=== PATIENT | female | born 1965 ===

== ENCOUNTER 2021-04-16 07:21 | Emergency (ER) | payer SELFPAY ==
--- NOTE | 2021-04-16 08:36 | XRay Report ---
CHEST 2 VIEWS INDICATION / CLINICAL INFORMATION: Chest pain. COMPARISON: None available. FINDINGS: SUPPORT DEVICES: None. HEART / MEDIASTINUM: The heart size is borderline. Pulmonary vasculature is normal. The aorta is norm al in caliber. LUNGS / PLEURA: There is mild diffuse reticular interstitial lung disease with slight peribronchial t hickening. No focal consolidation or effusion. No pneumothorax. ADDITIONAL FINDINGS: No significant additional findings. IMPRESSION: Mild diffuse nonspecific interstitial lung disease is probably chronic. Signer Name: Ernesto Gilliam MD Signed: 04/16/2021 8:32 AM Workstation Name: [id number]
[2021-04-16] MEDS ORDERED: ONDANSETRON 4 MG/2 ML INJ IV ONE (08:53)
[2021-04-16] MEDS ORDERED: MORPHINE 4 MG/1 ML INJ IV ONE ×3 (08:53→13:59)
[2021-04-16] MEDS ORDERED: ALUM-MAG HYDROXIDE-SIMETHICONE 200-200-20MG/5ML ORAL LIQD 30 ML PO ONE (08:54)
[2021-04-16] MEDS ORDERED: LIDOCAINE VISCOUS 2% 15 ML ORAL LIQD PO ONE (08:54)
--- NOTE | 2021-04-16 08:57 | Emergency Department Report ---
ED Chest Pain HPI - General Chief Complaint: Chest Pain Stated Complaint: ABD PAIN,CHEST DISCOMFORT Time Seen by Provider: 04/16/21 07:48 Source: patient Mode of arrival: Stretcher Limitations: No Limitations - History of Present Illness Initial Comments: This is a 55-year-old -Israeli female presents to the emergency department with a complaint of chest and abdominal pain that started around 12:30 AM last night. She has midsternal chest pain with some radiation towards her mid back and towards her left side. She has upper abdominal pain. Both of these pains are 10 out of 10 in intensity, intermittent, and there are no aggravating or alleviating factors. She admits that she has had these pains in the past but "usually it goes away, but this time it did not." She has a past medical history of asthma and GERD. No tobacco, illicit drug use, alcohol abuse. No family history of early heart attack. She has not taken anything for symptoms prior to presentation. Patient has never had a cardiac stress test. No recent travel or sick contacts at home. - Related Data Previous Rx's Medication Instructions Recorded Last Taken Type HYDROcodone/APAP 5-325 [[place] 1 each PO Q6HR PRN #12 tablet 04/16/21 Unknown Rx 5/325] Ondansetron [Zofran Odt] 4 mg PO Q8HR PRN #12 tab.rapdis 04/16/21 Unknown Rx Allergies Allergy/AdvReac Type Severity Reaction Status Date / Time No Known Allergies Allergy Verified 04/16/21 07:35 Heart Score - HEART Score History: Slightly suspicious EKG: Normal Age: 45-65 Risk factors: 1-2 risk factors Troponin: < normal limit HEART Score: 2 - EKG Read Time Time EKG Completed: 09:08 EKG Read Time: 09:10 - Critical Actions Critical Actions: 0-3 pts:0.9-1.7%risk of adverse cardiac event.Candidate for discharge ED Review of Systems ROS: Stated complaint: ABD PAIN,CHEST DISCOMFORT Other details as noted in HPI Comment: All other systems reviewed and negative Constitutional: denies: chills, fever Eyes: denies: eye pain, vision change ENT: denies: ear pain, throat pain Respiratory: denies: cough, shortness of breath Cardiovascular: chest pain. denies: palpitations Gastrointestinal: abdominal pain, nausea, vomiting Genitourinary: denies: dysuria, discharge Musculoskeletal: back pain. denies: arthralgia Skin: denies: rash, lesions Neurological: denies: headache, weakness ED Past Medical Hx - Medications Home Medications: Home Medications Medication Instructions Recorded Confirmed Last Taken Type HYDROcodone/APAP 5-325 [[place] 1 each PO Q6HR PRN #12 tablet 04/16/21 Unknown Rx 5/325] Ondansetron [Zofran Odt] 4 mg PO Q8HR PRN #12 tab.rapdis 04/16/21 Unknown Rx ED Physical Exam - General Limitations: No Limitations ED Course Vital Signs 04/16/21 04/16/21 04/16/21 07:23 09:46 09:54 Temperature 97.5 F L Pulse Rate 79 79 Respiratory 16 20 18 Rate Blood Pressure 168/89 Blood Pressure 152/107 [Right] O2 Sat by Pulse 98 96 Oximetry 04/16/21 04/16/21 04/16/21 13:42 14:50 15:17 Temperature Pulse Rate 65 Respiratory 17 17 16 Rate Blood Pressure Blood Pressure 153/77 [Right] O2 Sat by Pulse 100 Oximetry FLORENTIN score - Florentin Score Age > 65: (0) No Aspirin use within the Past 7 Days: (0) No 3 or more CAD Risk Factors: (0) No 2 or more Angina events in past 24 hrs: (1) Yes Known CAD with more than 50% Stenosis: (0) No Elevated Cardiac Markers: (0) No ST Deviation Greater than 0.5mm: (0) No FLORENTIN Score: 1 ED Medical Decision Making - Lab Data Result diagrams: 04/16/21 08:23 04/16/21 08:23 Lab Results 04/16/21 04/16/21 04/16/21 Range/Units 08:23 08:23 08:23 WBC 7.6 (4.5-11.0) K/mm3 RBC 4.44 (3.65-5.03) M/mm3 Hgb 13.3 (10.1-14.3) gm/dl Hct 40.0 (30.3-42.9) % MCV 90 (79-97) fl MCH 30 (28-32) pg MCHC 33 (30-34) % RDW 14.4 (13.2-15.2) % Plt Count 292 (140-440) K/mm3 Lymph % (Auto) 11.4 L (13.4-35.0) % [place] % (Auto) 5.4 (0.0-7.3) % Eos % (Auto) 0.4 (0.0-4.3) % Baso % (Auto) 0.5 (0.0-1.8) % Lymph # (Auto) 0.9 L (1.2-5.4) K/mm3 [place] # (Auto) 0.4 (0.0-0.8) K/mm3 Eos # (Auto) 0.0 (0.0-0.4) K/mm3 Baso # (Auto) 0.0 (0.0-0.1) K/mm3 Seg Neutrophils % 82.3 H (40.0-70.0) % Seg Neutrophils # 6.2 (1.8-7.7) K/mm3 PT 13.9 (12.2-14.9) Sec. INR 0.96 (0.87-1.13) Sodium 139 (137-145) mmol/L Potassium 4.8 (3.6-5.0) mmol/L Chloride 103.6 (98-107) mmol/L Carbon Dioxide 24 (22-30) mmol/L Anion Gap 16 mmol/L BUN 10 (7-17) mg/dL Creatinine 0.7 (0.6-1.2) mg/dL Estimated GFR > 60 ml/min BUN/Creatinine Ratio 14 % Glucose 107 H (65-100) mg/dL Calcium 9.4 (8.4-10.2) mg/dL Total Bilirubin 0.60 (0.1-1.2) mg/dL AST 31 (5-40) units/L ALT 44 (7-56) units/L Alkaline Phosphatase 131 H (35-129) units/L Troponin T < 0.010 (0.00-0.029) ng/mL Total Protein 8.5 H (6.3-8.2) g/dL Albumin 4.0 (3.9-5) g/dL Albumin/Globulin Ratio 0.9 % Lipase 13 (13-60) units/L Urine Color (Yellow) Urine Turbidity (Clear) Urine pH (5.0-7.0) Ur Specific [place] (1.003-1.030) Urine Protein (Negative) mg/dL Urine Glucose (UA) (Negative) mg/dL Urine Ketones (Negative) mg/dL Urine Blood (Negative) Urine Nitrite (Negative) Urine Bilirubin (Negative) Urine Urobilinogen (<2.0) mg/dL Ur Leukocyte Esterase (Negative) Urine WBC (Auto) (0.0-6.0) /HPF Urine RBC (Auto) (0.0-6.0) /HPF U Epithel Cells (Auto) (0-13.0) /HPF 04/16/21 04/16/21 Range/Units 10:31 13:14 WBC (4.5-11.0) K/mm3 RBC (3.65-5.03) M/mm3 Hgb (10.1-14.3) gm/dl Hct (30.3-42.9) % MCV (79-97) fl MCH (28-32) pg MCHC (30-34) % RDW (13.2-15.2) % Plt Count (140-440) K/mm3 Lymph % (Auto) (13.4-35.0) % [place] % (Auto) (0.0-7.3) % Eos % (Auto) (0.0-4.3) % Baso % (Auto) (0.0-1.8) % Lymph # (Auto) (1.2-5.4) K/mm3 [place] # (Auto) (0.0-0.8) K/mm3 Eos # (Auto) (0.0-0.4) K/mm3 Baso # (Auto) (0.0-0.1) K/mm3 Seg Neutrophils % (40.0-70.0) % Seg Neutrophils # (1.8-7.7) K/mm3 PT (12.2-14.9) Sec. INR (0.87-1.13) Sodium (137-145) mmol/L Potassium (3.6-5.0) mmol/L Chloride (98-107) mmol/L Carbon Dioxide (22-30) mmol/L Anion Gap mmol/L BUN (7-17) mg/dL Creatinine (0.6-1.2) mg/dL Estimated GFR ml/min BUN/Creatinine Ratio % Glucose (65-100) mg/dL Calcium (8.4-10.2) mg/dL Total Bilirubin (0.1-1.2) mg/dL AST (5-40) units/L ALT (7-56) units/L Alkaline Phosphatase (35-129) units/L Troponin T < 0.010 (0.00-0.029) ng/mL Total Protein (6.3-8.2) g/dL Albumin (3.9-5) g/dL Albumin/Globulin Ratio % Lipase (13-60) units/L Urine Color Yellow (Yellow) Urine Turbidity Clear (Clear) Urine pH 6.0 (5.0-7.0) Ur Specific [place] 1.014 (1.003-1.030) Urine Protein <15 mg/dl (Negative) mg/dL Urine Glucose (UA) Neg (Negative) mg/dL Urine Ketones Neg (Negative) mg/dL Urine Blood Neg (Negative) Urine Nitrite Neg (Negative) Urine Bilirubin Neg (Negative) Urine Urobilinogen 4.0 (<2.0) mg/dL Ur Leukocyte Esterase Neg (Negative) Urine WBC (Auto) < 1.0 (0.0-6.0) /HPF Urine RBC (Auto) < 1.0 (0.0-6.0) /HPF U Epithel Cells (Auto) < 1.0 (0-13.0) /HPF - EKG Data -: EKG Interpreted by Pa EKG shows normal: sinus rhythm, axis, intervals, QRS complexes, ST-T waves Rate: normal - EKG Data When compared to previous EKG there are: previous EKG unavailable Interpretation: normal EKG - Radiology Data Radiology results: report reviewed, image reviewed interpreted by me: Chest x-ray does not show any acute process. There are no pleural effusions, obvious pneumonia and there is no pneumothorax. No widened mediastinum. Abdominal x-ray shows nonspecific and nonobstructive bowel gas. No free air. ULTRASOUND ABDOMEN, LIMITED (RIGHT UPPER QUADRANT) INDICATION: upper abdominal pain. COMPARISON: None available. FINDINGS: Pancreas: Visualized portion shows no significant abnormality. Liver: Normal. Gallbladder: Minimal sludge versus sand-like stones. Bile ducts: Normal. Common Bile Duct measures 4 mm. Free fluid: None. Additional Findings: Within the right lower quadrant anterior abdominal wall senior controller measured a 5.7 x 1.9 x 7.9 cm heterogeneously isoechoic focus. IMPRESSION: 1. Minimal gallbladder sludge versus an-like stones. No sonographic evidence of acute cholecystitis. 2. Isoechoic subcutaneous soft tissue focus, measurements as above. Sonographic appearance is suggestive of subcutaneous lipoma. - Medical Decision Making This patient presents to the emergency department with a complaint of lower middle chest, and upper abdominal pain, since last night. It was associated with some nausea with vomiting. She has reproducible right upper quadrant and epigastric tenderness to palpation. Heart and lung sounds are normal to auscul tation and the patient does not appear in any respiratory or acute distress. The abdomen is soft, nondistended and nontoxic in appearance. Patient's labs have been mostly unremarkable including CBC, metabolic panel, negative troponins x2. Chest x-ray does not show any pneumonia, pleural effusions, pneumothorax, widened mediastinum, or any other acute process. Abdominal x-ray shows nonspecific nonobstructive bowel gas, and no free air. Upper quadrant abdominal ultrasound shows signs of cholelithiasis without cholecystitis. There is gallbladder sludge versus sand-like stones. Vital signs reassuring throughout her ED course including being afebrile. The patient was given doses of antiemetics and analgesia with some improvement. The patient is low on the heart and FLORENTIN score. For all these reasons patient appears safe for discharge home at this time. She has been given outpatient referrals for cardiology and general surgery. She will return to the emergency department with any worsening of her symptoms or with any acute distress. Critical Care Time: No Critical care attestation.: If time is entered above; I have spent that time in minutes in the direct care of this critically ill patient, excluding procedure time. ED Disposition Clinical Impression: Atypical chest pain Abdominal pain Qualifiers: Abdominal location: unspecified location Qualified Code(s): R10.9 - Unspecified abdominal pain Cholelithiasis Qualifiers: Cholelithiasis location: gallbladder Cholecystitis presence: without cholecystitis Biliary obstruction: without biliary obstruction Qualified Code(s): K80.20 - Calculus of gallbladder without cholecystitis without obstruction Hypertension Qualifiers: Hypertension type: primary hypertension Qualified Code(s): I10 - Essential (primary) hypertension Disposition: 01 HOME / SELF CARE / HOMELESS Is pt being admited?: No Condition: Stable Instructions: Cholelithiasis, Abdominal Pain, Adult, Nonspecific Chest Pain, Adult, Hypertension, Adult, Hypertension (ED) Additional Instructions: Please follow-up with a primary care physician in the next few days. I have given you a referral for a local cook soup, Dr. Daniels, to follow-up regarding your chest pains. I have given you a referral for a local general surgeon, Dr. Perla, to follow- up regarding the gallstones and recurrent abdominal pains. You have been prescribed a medication that is sedating and therefore should not be taken prior to driving, working, and responsible for children and in no way should be mixed with alcohol of any quantity. Return to the emergency department with any worsening of your symptoms, new or concerning symptoms not addressed during this current emergency department visit, or with any acute distress. Prescriptions: HYDROcodone/APAP 5-325 [[place] 5/325] 1 each PO Q6HR PRN #12 tablet PRN Reason: Pain Ondansetron [Zofran Odt] 4 mg PO Q8HR PRN #12 tab.rapdis PRN Reason: Nausea Referrals: SIOBHAN DANIELS MD [Staff Physician] - 3-5 Days JENI PERLA MD [Staff Physician] - 3-5 Days Time of Disposition: 14:41
[2021-04-16 09:08] LABS: Basophils % (Auto) 0.5 % (0.0-1.8); Eosinophils % (Auto) 0.4 % (0.0-4.3); Hemoglobin 13.3 gm/dl (10.1-14.3); Lymphocytes # (Auto) 0.9 K/mm3 (1.2-5.4); Lymphocytes % (Auto) 11.4 % (13.4-35.0); Mean Corpuscular HGB Conc 33 % (30-34); Mean Corpuscular Volume 90 fl (79-97); Monocytes # (Auto) 0.4 K/mm3 (0.0-0.8); Monocytes % (Auto) 5.4 % (0.0-7.3); Platelet Count 292 K/mm3 (140-440); Red Blood Count 4.44 M/mm3 (3.65-5.03); Red Cell Distribution Width 14.4 % (13.2-15.2)
[2021-04-16 09:28] LABS: Alanine Aminotransferase 44 units/L (7-56); Blood Urea Nitrogen 10 mg/dL (7-17); Calcium 9.4 mg/dL (8.4-10.2); Hemolysis Index 3
[2021-04-16 09:32] LABS: BUN/Creatinine Ratio 14
[2021-04-16 10:19] LABS: INR 0.96 (0.87-1.13)
--- NOTE | 2021-04-16 10:49 | XRay Report ---
ABDOMEN 2 VIEW(S) INDICATION / CLINICAL INFORMATION: Abd pain. COMPARISON: None available. FINDINGS: TUBES / LINES: None. BOWEL GAS PATTERN: No significant abnormality. There is moderate fecal matter in the right hemicolon. FREE AIR / EXTRALUMINAL GAS: None seen. ADDITIONAL FINDINGS: No significant additional findings. IMPRESSION: No acute process. Mild fecal retention. Signer Name: Kian Chapman Jr, MD Signed: 04/16/2021 10:45 AM Workstation Name: [id number]
[2021-04-16 11:31] LABS: Bilirubin,Urine NEG (Negative); Blood,Urine NEG (Negative); Color,Urine Yellow (Yellow); Protein,Urine <15 mg/dL mg/dL (Negative); RBC,Urine < 1.0 /HPF (0.0-6.0); WBC,Urine < 1.0 /HPF (0.0-6.0)
--- NOTE | 2021-04-16 11:57 | Ultrasound Report ---
ULTRASOUND ABDOMEN, LIMITED (RIGHT UPPER QUADRANT) INDICATION: upper abdominal pain. COMPARISON: None available. FINDINGS: Pancreas: Visualized portion shows no significant abnormality. Liver: Normal. Gallbladder: Minimal sludge versus sand-like stones. Bile ducts: Normal. Common Bile Duct measures 4 mm. Free fluid: None. Additional Findings: Within the right lower quadrant anterior abdominal wall home health occupational therapist measured a 5 .7 x 1.9 x 7.9 cm heterogeneously isoechoic focus. IMPRESSION: 1. Minimal gallbladder sludge versus an-like stones. No sonographic evidence of acute cholecystitis. 2. Isoechoic subcutaneous soft tissue focus, measurements as above. Sonographic appearance is suggest urssell of subcutaneous lipoma. Signer Name: Luis Eduardo Hernandez MD Signed: 04/16/2021 11:53 AM Workstation Name: [id number]
[2021-04-16 15:18] VITALS: BP 153/77
--- NOTE | 2021-04-22 09:44 | Electrocardiograph Report ---
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
== END 2021-04-16 15:17 | disposition home or self-care (01) ==
LOC: ED 07:21
DX: R07.9 Chest pain, unspecified (principal); R10.9 Unspecified abdominal pain; K80.20 Calculus of gallbladder without cholecystitis without obstruction; I10 Essential (primary) hypertension
CPT/HCPCS: 36415; 71046; 74019; 76705; 80053; 81001; 83690; 84484; 85025; 85610; 93005; 96374; 96375; 96376; 99284; J2270; J2405

== ENCOUNTER 2021-08-01 12:38 | Emergency (ER) | payer SELFPAY ==
[2021-08-01] MEDS ORDERED: ALBUTEROL 2.5 MG/3 ML NEBU IH ONE ×2 (12:48→12:51)
[2021-08-01] MEDS ORDERED: IPRATROPIUM 0.02% NEBU 2.5 ML IH ONE (12:48)
[2021-08-01] MEDS ORDERED: methylPREDNISolone Sod Succinate 125 MG/2 ML INJ IV ONE (12:51)
--- NOTE | 2021-08-01 13:03 | Emergency Department Report ---
ED Asthma HPI - General Chief Complaint: Adult Asthma Stated Complaint: SHORT OF BREATH PUI?: No Time Seen by Provider: 08/01/21 12:47 Source: patient Mode of arrival: Stretcher Limitations: No Limitations - History of Present Illness Initial Comments: Chief complaint: "It is my asthma." HPI: This is a 55-year-old female with history of intermittent asthma, GERD who presents with shortness of breath and wheezing. Asthma has had began today. She ran out of Advair. She denies fever. No sick contacts. No history of hospitalizations for asthma. Change of weather tends to be a trigger for asthma attacks. She has had a productive cough. Recently diagnosed with COVID-19 earlier this month. MD Complaint: "asthma attack", wheezing -: Gradual, This morning (This morning) Asthma History: adult onset (Asthma diagnosed 1999) Severity: moderate Context: ran out of meds (Ran out of Advair), other (Cold weather,) Associated Symptoms: other (Shortness of breath wheezing) Treatments Prior to Arrival: inhaled bronchodilator (EMS administered 5 mg of albuterol nebulizer) - Related Data Previous Rx's Medication Instructions Recorded Last Taken Type HYDROcodone/APAP 5-325 [[place] 1 each PO Q6HR PRN #12 tablet 04/16/21 Unknown Rx 5/325] Ondansetron [Zofran Odt] 4 mg PO Q8HR PRN #12 tab.rapdis 04/16/21 Unknown Rx Fluticasone/Salmeterol [Advair 1 puff IH BID #1 device 08/01/21 Unknown Rx Diskus 250-50 mcg] Prednisone [predniSONE 10 mg 10 mg PO .TAPER #1 08/01/21 Unknown Rx (6-Day Pack, 21 Tabs)] Allergies Allergy/AdvReac Type Severity Reaction Status Date / Time No Known Allergies Allergy Verified 08/01/21 13:36 ED Review of Systems ROS: Stated complaint: SHORT OF BREATH Other details as noted in HPI Comment: All other systems reviewed and negative Constitutional: denies: chills, fever, malaise ENT: throat pain Respiratory: cough, shortness of breath, wheezing Cardiovascular: denies: chest pain Gastrointestinal: denies: abdominal pain, nausea, vomiting ED Past Medical Hx - Past Medical History Previous Medical History?: Yes Hx GERD: Yes Hx Asthma: Yes - Surgical History Past Surgical History?: No - Family History Family history: other (Sister has history of asthma) - Social History Smoking Status: Never Smoker Substance Use Type: None - Medications Home Medications: Home Medications Medication Instructions Recorded Confirmed Last Taken Type HYDROcodone/APAP 5-325 [[place] 1 each PO Q6HR PRN #12 tablet 04/16/21 08/01/21 Unknown Rx 5/325] Ondansetron [Zofran Odt] 4 mg PO Q8HR PRN #12 tab.rapdis 04/16/21 08/01/21 Unknown Rx Fluticasone/Salmeterol [Advair 1 puff IH BID #1 device 08/01/21 Unknown Rx Diskus 250-50 mcg] Prednisone [predniSONE 10 mg 10 mg PO .TAPER #1 08/01/21 Unknown Rx (6-Day Pack, 21 Tabs)] ED Physical Exam - General Limitations: No Limitations General appearance: alert, in distress (Has difficulty completing sentences, audible wheezing) - Head Head exam: Present: atraumatic, normocephalic - Eye Eye exam: Present: normal appearance - ENT ENT exam: Present: normal orophraynx, mucous membranes moist - Neck Neck exam: Present: normal inspection, full ROM - Respiratory Respiratory exam: Present: respiratory distress, wheezes, accessory muscle use, decreased breath sounds, prolonged expiratory. Absent: rales, rhonchi - Cardiovascular Cardiovascular Exam: Present: regular rate, normal rhythm, normal heart sounds. Absent: systolic murmur, diastolic murmur, rubs, gallop - GI/Abdominal GI/Abdominal exam: Present: soft, normal bowel sounds. Absent: distended, tenderness, guarding, rebound - Extremities Exam Extremities exam: Present: normal inspection - Neurological Exam Neurological exam: Present: alert, oriented X3 - Psychiatric Psychiatric exam: Present: normal affect, normal mood - Skin Skin exam: Present: warm, dry, intact, normal color. Absent: rash ED Course Vital Signs 08/01/21 08/01/21 08/01/21 13:37 13:39 13:40 Temperature 98.6 F 98.6 F Pulse Rate 85 85 Respiratory 17 17 Rate Blood Pressure 155/70 Blood Pressure 155/70 [Right] O2 Sat by Pulse 96 96 96 Oximetry 08/01/21 08/01/21 15:25 16:01 Temperature 98.6 F 98.9 F Pulse Rate 91 H 85 Respiratory 16 16 Rate Blood Pressure Blood Pressure 132/88 144/96 [Right] O2 Sat by Pulse 95 92 Oximetry - Reevaluation(s) Reevaluation #1: 08/01/21 15:32 Upon reexamination patient has oxygen saturation 94% nasal cannula, diffuse rales rhonchi. Reevaluation #2: 08/01/21 18:24 Repeat oxygen saturation 97% on reexamination. Patient is discharged home. ED Medical Decision Making - Lab Data Result diagrams: 08/01/21 15:51 08/01/21 15:51 - EKG Data -: EKG Interpreted by Ia EKG shows normal: sinus rhythm, axis, intervals, QRS complexes Rate: normal - EKG Data Interpretation: nonspecific ST-T wave alta 08/01/21 17:03 EKG obtained 1659 EKG interpreted by va Rate 95 bpm normal sinus rhythm normal axis normal intervals no ST elevation nonspecific T wave pattern - Radiology Data Radiology results: report reviewed Patient Name: VENANCIO MCKINNEY Gender: Female Date of : 1965 Referring Provider: DARRYN WALTON Organization: [facility] Accession Number: [id number] Requested Date: August 01, 2021 15:33 Report Status: Final Requested Procedure: 1 Procedure Description: XR chest 1V ap Modality: XR Findings Reporting MD: Jacoby Harris Dictation Time: August 01, 2021 14:54 Pulpit Operator: Not available Injection Moulding Machine Operator Date: CHEST 1 VIEW INDICATION / CLINICAL INFORMATION: dyspnea STUDY TIME: 1542 COMPARISON: 04/16/2021 FINDINGS: SUPPORT DEVICES: None HEART / MEDIASTINUM: No significant abnormality. LUNGS / PLEURA: Mild diffuse increased interstitial markings probably is not significantly changed from prior study given the technique differences. No focal infiltrates are obvious. No pleural effusions are seen. No pneumothorax. ADDITIONAL FINDINGS: No significant additional findings. Signer Name: Jacoby Harris MD Signed: 08/01/2021 2:54 PM Workstation Name: [id number] - Medical Decision Making 1. Acute asthma exacerbation: Patient had hypoxia upon arrival 90% on room air. Oxygen improved to 97% after treatment emergency department. She received 10 mg of albuterol nebulizer therapy as well as Atrovent 1 mg. She also received IV Solu-Medrol. She has markedly improved. 2. History of COVID-19: On reexamination patient had rales or rhonchi, I suspect Covid pneumonia, patient was Covid positive earlier this month. She did not require hospitalization. CBC troponin BNP all within normal limits. EKG without evidence of heart strain or acute ischemia. Potassium decreased. Patient is aware. Instructed to increase potassium intake. She will follow-up with her asthma pulmonology specialist at the [facility]. Prescription for Advair and prednisone provided. Critical care attestation.: If time is entered above; I have spent that time in minutes in the direct care of this critically ill patient, excluding procedure time. ED Disposition Clinical Impression: Acute asthma exacerbation, History of COVID-19, Hypokalemia Disposition: 01 HOME / SELF CARE / HOMELESS Is pt being admited?: No Does the pt Need Aspirin: No Condition: Stable Instructions: Asthma, Adult, Fksu-ix-Mapl, Potassium Content of Foods Prescriptions: Fluticasone/Salmeterol [Advair Diskus 250-50 mcg] 1 puff IH BID #1 device Prednisone [predniSONE 10 mg (6-Day Pack, 21 Tabs)] 10 mg PO .TAPER #1 Referrals: GILMA [place] MD [Staff Physician] - 3-5 Days PRIMARY CARE, [Primary Care Provider] - 3-5 Days
--- NOTE | 2021-08-01 15:58 | XRay Report ---
CHEST 1 VIEW INDICATION / CLINICAL INFORMATION: dyspnea STUDY TIME: 1541 COMPARISON: 04/16/2021 FINDINGS: SUPPORT DEVICES: None HEART / MEDIASTINUM: No significant abnormality. LUNGS / PLEURA: Mild diffuse increased interstitial markings probably is not significantly changed fr om prior study given the technique differences. No focal infiltrates are obvious. No pleural effusion s are seen. No pneumothorax. ADDITIONAL FINDINGS: No significant additional findings. Signer Name: Jacoby Harris MD Signed: 08/01/2021 3:54 PM Workstation Name: [id number]
[2021-08-01 16:23] LABS: Blood Urea Nitrogen 9 mg/dL (7-17); Calcium 8.8 mg/dL (8.4-10.2); Hemolysis Index 9
[2021-08-01 16:24] LABS: BUN/Creatinine Ratio 15
[2021-08-01 16:30] LABS: Basophils % (Auto) 0.6 % (0.0-1.8); Eosinophils # (Auto) 0.3 K/mm3 (0.0-0.4); Eosinophils % (Auto) 3.8 % (0.0-4.3); Hematocrit 39.3 % (30.3-42.9); Lymphocytes # (Auto) 0.8 K/mm3 (1.2-5.4); Lymphocytes % (Auto) 10.6 % (13.4-35.0); Mean Corpuscular HGB Conc 33 % (30-34); Mean Corpuscular Volume 90 fl (79-97); Monocytes # (Auto) 0.2 K/mm3 (0.0-0.8); Monocytes % (Auto) 2.3 % (0.0-7.3); Platelet Count 264 K/mm3 (140-440); Red Blood Count 4.38 M/mm3 (3.65-5.03); Red Cell Distribution Width 14.5 % (13.2-15.2)
[2021-08-01 18:39] VITALS: BP 146/88
--- NOTE | 2021-08-02 11:41 | Electrocardiograph Report ---
[facility] Test Date: 2021-08-01 Test Time: 16:59:13 Pat Name: VENANCIO MCKINNEY Department: Room: Gender: F Commission Specialist: HERMILA : 1965 Requested By: DARRYN WALTON Order Number: [id number] Reading MD: Justin Portillo Measurements Intervals [place] Rate: 97 P: 50 [place]: 126 QRS: 17 QRSD: 79 T: QT: 374 QTc: 477 Interpretive Statements Sinus rhythm Borderline T abnormalities, diffuse leads Compared to ECG 04/16/2021 09:08:07 No significant change noted. Electronically Signed On 08-02-2021 11:40:40 EST by Justin Portillo
== END 2021-08-01 18:42 | disposition home or self-care (01) ==
LOC: ED 12:38
DX: J45.901 Unspecified asthma with (acute) exacerbation (principal); E87.6 Hypokalemia; K21.9 Gastro-esophageal reflux disease without esophagitis; Z79.899 Other long term (current) drug therapy
CPT/HCPCS: 36415; 71045; 80048; 83880; 84484; 85025; 93005; 93010; 94640; 96374; 99284; J2930